=== PATIENT | male | born 1990 | race Asian ===

== ENCOUNTER 2016-12-24 18:25 | Emergency (ER) | payer OTHER ==
[~2016-12-24] VITALS: Ht 157.5 cm; Wt 54.4 kg
[2016-12-24 18:25] VITALS: BP_SYST 128
[2016-12-24] MEDS ORDERED: BACITRACIN 1 GM OINT TP ONE (18:45)
[2016-12-24] MEDS ORDERED: ACETAMINOPHEN 500 MG TABLET PO ONE (18:45)
[2016-12-24 20:20] VITALS: BP_SYST 128
== END 2016-12-24 20:17 | disposition home or self-care (01) ==
LOC: SED 18:25
DX: S06.9X9A Unspecified intracranial injury with loss of consciousness of unspecified duration, initial encounter (principal); R03.0 Elevated blood-pressure reading, without diagnosis of hypertension; X58.XXXA Exposure to other specified factors, initial encounter; Y93.61 Activity, american tackle football; Y92.89 Other specified places as the place of occurrence of the external cause; Y99.8 Other external cause status
CPT/HCPCS: 70450-TC; 99284